=== PATIENT | male | born 1970 | race Caucasian/White ===

== ENCOUNTER 2018-02-18 21:10 | Emergency (ER) | payer OTHER ==
[~2018-02-18] VITALS: Ht 185.4 cm; Wt 99.8 kg
[~2018-02-18 21:10] MED LIST: KETO10TA2 PO; ORPH100T PO; PROVENTIL2 MG
[2018-02-18] MEDS ORDERED: COLD & FLU SEV1 EACH (21:32)
[2018-02-18] MEDS ORDERED: CONEX TABLET1 EACH (21:33)
[2018-02-18] MEDS ORDERED: AZITHROMYCIN1 GM (21:33)
[2018-02-18] MEDS ORDERED: MEDROLPACK PO (23:40)
[2018-02-18] MEDS ORDERED: IPRAT-ALBUT 0.5-3 ML IH (23:40)
[2018-02-18] MEDS ORDERED: MUCINEX DM ER1 EAC1 PO (23:40)
[2018-02-18] MEDS ORDERED: BUDESONIDE0.5 MG/2 M IH (23:40)
== END 2018-02-18 23:50 | disposition home or self-care (01) ==
LOC: ER 21:10
DX: J45.998 Other asthma (principal); J06.9 Acute upper respiratory infection, unspecified